=== PATIENT | male | born 1930 ===

== ENCOUNTER 2019-03-03 15:05 | Inpatient (IN) ==
[2019-03-03] MEDS ORDERED: 0.9 % Sodium Chloride 1,000 ML IVC ONE (15:17)
[2019-03-03] MEDS ORDERED: Ondansetron 4 MG/2 ML VIAL IVP ONE (15:17)
[2019-03-03] MEDS ORDERED: Ondansetron 4 MG/2 ML VIAL ONE (15:26)
[2019-03-03 15:39] LABS: Basophils % 0.6 %; Eosinophils # 0.1 K/mcL (0.0-0.6); Eosinophils % 1.4 %; Hematocrit 36.5 % (37.5-50.1); Hemoglobin 12.7 g/dL (12.9-16.9); Immature Granulocytes % 0.3 % (0-4); Mean Corpuscular HGB Conc 34.8 g/dL (31.6-35.5); Mean Corpuscular Hemoglobin 31.6 pg (28.0-33.3); Mean Corpuscular Volume 90.8 fL (83.0-100.0); Mean Platelet Volume 9.8 fL (9.4-12.4); Monocytes # 0.7 K/mcL (0.0-1.3); Monocytes % 18.1 %; Neutrophils # 0.9 K/mcL (1.6-8.9); Platelet Count 217 K/mcL (140-400); Red Blood Count 4.02 M/mcL (4.19-5.50); Red Cell Distribution Width 13.7 % (11.5-14.5); Segmented Neutrophils % 24.6 %; White Blood Count 3.6 K/mcL (4.3-11.1)
[2019-03-03 15:50] LABS: INR 1.3; Prothrombin Time 14.7 Seconds (9.4-12.1)
[2019-03-03 15:52] LABS: Activated Partial Thrombo Time 29.7 Seconds (26.0-36.0)
[2019-03-03 15:57] LABS: Alanine Aminotransferase 16 Units/L (7-52); Albumin 3.8 g/dL (3.5-5.7); Alkaline Phosphatase 45 Units/L (34-104); Aspartate Amino Transferase 20 Units/L (13-39); BUN/Creatinine Ratio 13 (6-26); Bilirubin,Total 0.5 mg/dL (0.3-1.0); Blood Urea Nitrogen 24 mg/dL (8-23); Calcium 8.9 mg/dL (8.6-10.3); Carbon Dioxide 25 mEq/L (23-29); Chloride 107 mEq/L (98-107); Globulin 3.9 g/dL (2.4-3.5); Glucose 115 mg/dL (70-105); Osmolality,Calculated 289 (280-300); Sodium 137 mEq/L (136-145); Total Protein 7.7 g/dL (6.4-8.9); Troponin I < 0.03 ng/mL (< 0.04); eGFR For African Americans 44 (> 60); eGFR For Non-African Americans 36 (> 60)
[2019-03-03 16:08] LABS: Platelet Estimate Normal (Normal)
[2019-03-03] MEDS ORDERED: Naloxone 0.4 MG/ML INJ IVP PRN (18:03)
[2019-03-03] MEDS ORDERED: Ondansetron 4 MG/2 ML VIAL IVP PRN (18:03)
[2019-03-03] MEDS ORDERED: Acetaminophen 325 MG TABLET PO PRN (18:03)
[2019-03-03 18:29] LABS: VBG HCO3 27 mEq/L (21-27); VBG PCO2 51 mmHg (41-51); VBG PH 7.33 pH Units (7.32-7.42); VBG PO2 47 mmHg (25-50)
[2019-03-03] MEDS: Apixaban 5 MG TABLET PO SCH (22:04)
[2019-03-04 04:25] LABS: Basophils % 0.4 %; Eosinophils % 0.4 %; Hematocrit 34.1 % (37.5-50.1); Hemoglobin 11.9 g/dL (12.9-16.9); Lymphocytes # 0.6 K/mcL (0.6-4.6); Lymphocytes % 25.5 %; Mean Corpuscular HGB Conc 34.9 g/dL (31.6-35.5); Mean Corpuscular Hemoglobin 31.5 pg (28.0-33.3); Mean Corpuscular Volume 90.2 fL (83.0-100.0); Mean Platelet Volume 9.6 fL (9.4-12.4); Monocytes # 0.5 K/mcL (0.0-1.3); Monocytes % 20.6 %; Neutrophils # 1.3 K/mcL (1.6-8.9); Platelet Count 174 K/mcL (140-400); Red Blood Count 3.78 M/mcL (4.19-5.50); Red Cell Distribution Width 13.7 % (11.5-14.5); Segmented Neutrophils % 53.1 %; White Blood Count 2.5 K/mcL (4.3-11.1)
[2019-03-04 04:48] LABS: Calcium 8.8 mg/dL (8.6-10.3); Chol/HDL Ratio 3.4 (0-4.9); Magnesium 1.8 mg/dL (1.6-2.6); Potassium 3.9 mEq/L (3.5-5.1)
[2019-03-04 04:58] LABS: Thyroid Stimulating Hormone 1.783 mcIU/mL (0.340-5.600)
[2019-03-04 05:06] LABS: Platelet Estimate Normal (Normal)
[2019-03-04 06:10] LABS: Bilirubin,Urine Negative (Negative); Blood,Urine Negative (Negative); Clarity,Urine Clear (Clear); Color,Urine Yellow (Yellow); Glucose,Urine (UA) Normal (Normal); Ketones,Urine Negative (Negative); Leukocyte Esterase,Urine Negative (Negative); Nitrite,Urine Negative (Negative); Protein,Urine Negative (Neg-Trace); Urobilinogen,Urine Normal (Normal)
[2019-03-04] MEDS: 0.9 % Sodium Chloride 1,000 ML IVC SCH (06:15)
[2019-03-04] MEDS: Apixaban 5 MG TABLET PO SCH (08:23)
[2019-03-04] MEDS ORDERED: Metoprolol XL (24 HR) Succ 25 MG TAB.ER.24H PO SCH (09:00)
[2019-03-04 09:53] LABS: Estimated Average Glucose 163 mg/dl
[2019-03-04] MEDS ORDERED: Dextrose Gel 15 GM/37.5 ML TUBE PO PRN ×2 (11:04)
[2019-03-04] MEDS ORDERED: D5% in Water 1,000 ML IVC PRN (11:04)
[2019-03-04] MEDS ORDERED: *HR* Dextrose 50 % in Water (Syg) 50 ML SYRINGE IVP PRN (11:04)
[2019-03-04] MEDS: amLODIPine 5 MG TABLET PO SCH (11:44)
[2019-03-04] MEDS: Insulin LISPRO 300 UNITS/3 ML VIAL SQ SCH ×3 (11:45→21:54)
[2019-03-04] MEDS ORDERED: *HR* Heparin 5,000 UNIT/ML VIAL IVP PRN ×2 (21:00)
[2019-03-04 21:24] LABS: Hematocrit 32.9 % (37.5-50.1); Hemoglobin 11.4 g/dL (12.9-16.9); Mean Corpuscular HGB Conc 34.7 g/dL (31.6-35.5); Mean Corpuscular Hemoglobin 31.7 pg (28.0-33.3); Mean Corpuscular Volume 91.4 fL (83.0-100.0); Mean Platelet Volume 9.7 fL (9.4-12.4); Platelet Count 172 K/mcL (140-400); Red Cell Distribution Width 13.9 % (11.5-14.5); White Blood Count 2.3 K/mcL (4.3-11.1)
[2019-03-04 21:28] LABS: INR 1.2; Prothrombin Time 13.2 Seconds (9.4-12.1)
[2019-03-04 21:30] LABS: Activated Partial Thrombo Time 32.2 Seconds (26.0-36.0)
[2019-03-04 21:33] LABS: Heparin anti-factor XA UFH 1.13 IU/mL (0.30-0.70)
[2019-03-04] MEDS: ALPRAZolam 0.25 MG TABLET PO PRN (21:42)
[2019-03-04] MEDS: Heparin 25,000 UNIT/250 ML D5W 25,000 UNIT/250 ML IV.SOLN IVC SCH (21:43)
[2019-03-05 05:12] LABS: Calcium 8.5 mg/dL (8.6-10.3); Magnesium 1.9 mg/dL (1.6-2.6)
[2019-03-05] MEDS: 0.9 % Sodium Chloride 1,000 ML IVC SCH (06:52)
[2019-03-05] MEDS: Insulin LISPRO 300 UNITS/3 ML VIAL SQ SCH ×4 (09:05→22:23)
[2019-03-05] MEDS: amLODIPine 5 MG TABLET PO SCH (09:14)
[2019-03-05] MEDS: Magnesium Oxide 400 MG TABLET PO SCH (09:15)
[2019-03-05] MEDS: Heparin 25,000 UNIT/250 ML D5W 25,000 UNIT/250 ML IV.SOLN IVC SCH (19:02)
[2019-03-05] MEDS: ALPRAZolam 0.25 MG TABLET PO PRN (22:27)
[2019-03-06] MEDS: 0.9 % Sodium Chloride 1,000 ML IVC SCH ×2 (03:08→23:14)
[2019-03-06 07:52] LABS: Eosinophils # 0.1 K/mcL (0.0-0.6); Eosinophils % 2.8 %; Hematocrit 31.9 % (37.5-50.1); Hemoglobin 11.4 g/dL (12.9-16.9); Immature Granulocytes % 0.4 % (0-4); Lymphocytes # 1.3 K/mcL (0.6-4.6); Lymphocytes % 52.4 %; Mean Corpuscular HGB Conc 35.7 g/dL (31.6-35.5); Mean Corpuscular Hemoglobin 32.2 pg (28.0-33.3); Mean Corpuscular Volume 90.1 fL (83.0-100.0); Mean Platelet Volume 9.8 fL (9.4-12.4); Monocytes % 21.8 %; Neutrophils # 0.6 K/mcL (1.6-8.9); Platelet Count 173 K/mcL (140-400); Red Blood Count 3.54 M/mcL (4.19-5.50); Red Cell Distribution Width 13.9 % (11.5-14.5); Segmented Neutrophils % 22.6 %; White Blood Count 2.5 K/mcL (4.3-11.1)
[2019-03-06 07:56] LABS: Monocytes # 0.6 K/mcL (0.0-1.3)
[2019-03-06 08:08] LABS: Calcium 8.5 mg/dL (8.6-10.3); Magnesium 1.8 mg/dL (1.6-2.6); Potassium 3.8 mEq/L (3.5-5.1)
[2019-03-06] MEDS: amLODIPine 5 MG TABLET PO SCH (08:32)
[2019-03-06] MEDS: Magnesium Oxide 400 MG TABLET PO SCH (08:32)
[2019-03-06] MEDS: Insulin LISPRO 300 UNITS/3 ML VIAL SQ SCH ×4 (08:32→20:35)
[2019-03-06 08:58] LABS: Platelet Estimate Normal (Normal)
[2019-03-06] MEDS ORDERED: Melatonin 3 MG TABLET PO PRN (10:52)
[2019-03-06] MEDS: Heparin 25,000 UNIT/250 ML D5W 25,000 UNIT/250 ML IV.SOLN IVC SCH (22:22)
[2019-03-07 01:31] LABS: Basophils % 0.5 %; Mean Platelet Volume 9.6 fL (9.4-12.4); Platelet Count 167 K/mcL (140-400); Red Cell Distribution Width 13.8 % (11.5-14.5)
[2019-03-07 01:32] LABS: Eosinophils # 0.1 K/mcL (0.0-0.6); Hematocrit 31.7 % (37.5-50.1); Hemoglobin 10.7 g/dL (12.9-16.9); Lymphocytes # 1.1 K/mcL (0.6-4.6); Lymphocytes % 55.3 %; Mean Corpuscular HGB Conc 33.8 g/dL (31.6-35.5); Mean Corpuscular Hemoglobin 31.9 pg (28.0-33.3); Mean Corpuscular Volume 94.6 fL (83.0-100.0); Monocytes # 0.4 K/mcL (0.0-1.3); Monocytes % 17.8 %; Neutrophils # 0.5 K/mcL (1.6-8.9); Red Blood Count 3.35 M/mcL (4.19-5.50); Segmented Neutrophils % 23.4 %
[2019-03-07 01:43] LABS: Prothrombin Time 11.1 Seconds (9.4-12.1)
[2019-03-07 01:53] LABS: Calcium 8.8 mg/dL (8.6-10.3); Magnesium 1.9 mg/dL (1.6-2.6); Potassium 3.9 mEq/L (3.5-5.1)
[2019-03-07 02:02] LABS: Platelet Estimate Normal (Normal)
[2019-03-07] MEDS: Magnesium Oxide 400 MG TABLET PO SCH (09:08)
[2019-03-07] MEDS: Insulin LISPRO 300 UNITS/3 ML VIAL SQ SCH ×2 (09:09→12:15)
[2019-03-07] MEDS: amLODIPine 5 MG TABLET PO SCH (09:09)
[2019-03-07] MEDS ORDERED: Metoprolol XL (24 HR) Succ 25 MG TAB.ER.24H PO SCH (11:00)
[2019-03-07] MEDS ORDERED: Apixaban 5 MG TABLET PO SCH (11:17)
[2019-03-07 13:35] VITALS: BP 153/79
== END 2019-03-07 15:47 | disposition home or self-care (01) | DRG 312 ==
LOC: 2ANU 15:05 → EMEROOARM 15:05 → 2ANU 18:44 → SUATTDRO 03-04 09:32
PROVIDERS: ADMIT Internal Medicine; ATTEND Internal Medicine